=== PATIENT | male | born 1980 | race Caucasian/White ===

== ENCOUNTER 2024-04-16 09:07 | Inpatient (IN) | payer OTHER ==
[2024-04-16 09:46] VITALS: BMI 21.2
[2024-04-16] MEDS ORDERED: ACETAMINOPHEN 325 MG TABLET (FP) PO PRN (10:03)
[2024-04-16] MEDS ORDERED: MAGNESIUM HYDROX 2400MG/30ML ORAL SUSPENSION 30 ML CUP PO PRN (10:03)
[2024-04-16] MEDS ORDERED: ONDANSETRON *ODT* 4 MG TABLET SL PRN (10:03)
[2024-04-16] MEDS ORDERED: IBUPROFEN 400 MG TABLET (FP) PO PRN (10:03)
[2024-04-16] MEDS ORDERED: POLYETHYLENE GLYCOL (HEALTHYLAX) 3350 17 GM PACKET PO PRN (10:03)
[2024-04-16] MEDS ORDERED: DICYCLOMINE HCL 10 MG CAPSULE PO PRN (10:03)
[2024-04-16] MEDS ORDERED: BISMUTH SUBSALICYLATE 262 MG/15 ML BTL PO PRN (10:03)
[2024-04-16] MEDS ORDERED: NALOXONE HCL (KLOXXADO) 8 MG SPRAY NS PRN (10:03)
[2024-04-16] MEDS ORDERED: LOPERAMIDE HCL 2 MG CAPSULE PO PRN (10:03)
[2024-04-16] MEDS ORDERED: NALOXONE HCL 0.4 MG/ML VIAL IM PRN (10:03)
[2024-04-16] MEDS ORDERED: guaiFENesin 600 MG TABLET.ER (FP) PO PRN (10:03)
[2024-04-16] MEDS ORDERED: BENZOCAINE/MENTHOL (CHLORASEPTIC ) LOZENGE MM PRN (10:03)
[2024-04-16] MEDS ORDERED: BENZONATATE 200 MG CAPSULE PO PRN (10:03)
[2024-04-16] MEDS ORDERED: NITROGLYCERIN SUBLINGUAL 1/150 0.4 MG TAB SL PRN (10:32)
[2024-04-16] MEDS ORDERED: NICOTINE 21 MG/24 HOURS TOPICAL PATCH ONE (10:52)
[2024-04-16] MEDS ORDERED: methaDONE HCL 10 MG TABLET (FOR DETOX USE ONLY) ONE (10:53)
[2024-04-16] MEDS ORDERED: BUPRENORPHINE/NALOXONE 0.5 MG/0.125 MG FILM ONE (10:54)
[2024-04-16] MEDS: NICOTINE 21 MG/24 HOURS TOPICAL PATCH TD SCH (11:04)
[2024-04-16] MEDS: BUPRENORPHINE/NALOXONE 0.5 MG/0.125 MG FILM SL ONE ×2 (11:05→22:28)
[2024-04-16] MEDS: methaDONE HCL 10 MG TABLET (FOR DETOX USE ONLY) PO ONE (11:05)
[2024-04-16] MEDS ORDERED: amLODIPine BESYLATE 5 MG TABLET (FP) ONE (11:26)
[2024-04-16] MEDS: ISOSORBIDE MONONITRATE 30 MG TAB.SR.24H (FP) PO SCH (11:30)
[2024-04-16] MEDS: amLODIPine BESYLATE 2.5 MG TABLET (FP) PO SCH (11:30)
[2024-04-16] MEDS: PANTOPRAZOLE 40 MG TABLET PO SCH (12:00)
[2024-04-16] MEDS: cloNIDine HCL 0.1 MG TABLET PO SCH (13:37)
[2024-04-16 14:34] LABS: HEMATOCRIT 42.6 % (35.4-49); MCH 28.8 pg (25.7-33.7); MCHC 32.9 g/dl (32.0-35.9); MEAN CELL VOLUME 87.7 fl (80-96); MEAN PLT VOLUME 9.2 fl (7.5-11.1); PLATELET COUNT 244 10^3/uL (134-434); RBC 4.86 M/mm3 (4.00-5.60); RDW 13.7 % (11.9-15.9); WHITE BLOOD COUNT 9.6 K/mm3 (4.0-10.0)
[2024-04-16 14:48] LABS: CHLORIDE 109 mmol/L (98-107); POTASSIUM 4.1 mmol/L (3.5-5.1); SODIUM 141 mmol/L (136-145)
[2024-04-16 14:53] LABS: GLUCOSE,RANDOM 121 mg/dL (74-106)
[2024-04-16 14:55] LABS: ALBUMIN 3.4 g/dl (3.4-5.0); ANION GAP 5 mmol/L (4-13); CALCIUM 8.8 mg/dL (8.5-10.1); CO2 27 mmol/L (21-32); LDL CHOLESTEROL (ONLY SJRH) 106 mg/dL (5-100); SGOT/AST 19 U/L (15-37); TOT PROT 6.6 g/dl (6.4-8.2)
[2024-04-16 14:57] LABS: ALK PHOS 86 U/L (45-117); BILIRUBIN,TOTAL 0.3 mg/dL (0.2-1); CHOLESTEROL 155 mg/dL (50-200); CREATININE 0.9 mg/dL (0.55-1.3); HDL CHOLESTEROL 40 mg/dL (40-60); SGPT/ALT 42 U/L (13-61)
[2024-04-16 15:43] LABS: HIV INTERPRETATION NEGATIVE (NEGATIVE)
[2024-04-16] MEDS: ATORVASTATIN CA 80 MG TABLET (FP) PO SCH (22:28)
[2024-04-16] MEDS: THIAMINE 100 MG TABLET PO SCH (22:28)
[2024-04-16] MEDS: MELATONIN 5 MG TABLETS PO SCH (22:29)
[2024-04-17] MEDS: MAG HYDROX/AL HYDROX/SIMETH 30 ML UNIT-DOSE CUP PO PRN (01:27)
[2024-04-17] MEDS: PRENATAL VITAMINS W/ FOLIC ACID TABLET (FP) PO SCH (09:04)
[2024-04-17] MEDS: ASPIRIN COATED 81 MG TABLET.EC PO SCH (09:07)
[2024-04-17] MEDS: BUPRENORPHINE/NALOXONE 0.5 MG/0.125 MG FILM SL SCH (09:10)
[2024-04-17] MEDS ORDERED: PATIENT'S OWN MEDICATION (NON-FORMULARY) (Esomeprazole Magnesium [Nexium 24hr] 20 MG Capsu PO SCH (10:00)
[2024-04-17] MEDS: ISOSORBIDE MONONITRATE 30 MG TAB.SR.24H (FP) PO SCH (10:50)
[2024-04-18] MEDS: methaDONE HCL 10 MG TABLET (FOR DETOX USE ONLY) PO ONE (09:18)
[2024-04-18] MEDS: BUPRENORPHINE/NALOXONE 2 MG/0.5 MG FILM PACKET SL SCH (09:18)
[2024-04-18] MEDS: METHOCARBAMOL 500 MG TABLET PO PRN (19:16)
[2024-04-18] MEDS: hydrOXYzine PAMOATE 25 MG CAPSULE (FP) PO PRN (19:16)
[2024-04-19] MEDS: BUPRENORPHINE/NALOXONE 4 MG/1 MG FILM PACKET SL SCH (09:54)
[2024-04-20] MEDS: BACITRACIN 0.9 GM PACKET TP SCH (09:30)
[2024-04-20] MEDS: methaDONE HCL 10 MG TABLET (FOR DETOX USE ONLY) PO ONE (09:31)
[2024-04-20] MEDS: IBUPROFEN 600 MG TABLET (FP) PO PRN (09:32)
[2024-04-20] MEDS: BUPRENORPHINE/NALOXONE 8 MG/2 MG FILM PACKET SL SCH (09:36)
[2024-04-20] MEDS: CEPHALEXIN MONOHYDRATE 500 MG CAPSULE (UD) PO SCH (13:37)
[2024-04-20] MEDS: SULFAMETHOXAZOLE/TRIMETHOPRIM 800MG/160MG D.S. TABLET PO SCH (22:11)
[2024-04-20] MEDS: CLOTRIMAZOLE 1% CREAM TP SCH (22:55)
[2024-04-21 07:00] VITALS: RESP 16
[2024-04-21 09:35] VITALS: BP 150/80; PULSE 91; TEMP 99.8
[2024-04-21] MEDS: BUPRENORPHINE/NALOXONE 8 MG/2 MG FILM PACKET SL SCH (10:00)
== END 2024-04-21 10:15 | disposition home or self-care (01) | DRG 773 ==
LOC: YASAS 09:07 → Y6N 11:46
PROVIDERS: ADMIT Allergy & Immunology; ATTEND Surgery
PROC: HZ2ZZZZ Detoxification Services for Substance Abuse Treatment (ICD-10-PCS; principal; 2024-04-16)
DX: F11.23 Opioid dependence with withdrawal (principal); F10.20 Alcohol dependence, uncomplicated; F17.210 Nicotine dependence, cigarettes, uncomplicated; I25.10 Atherosclerotic heart disease of native coronary artery without angina pectoris; I10 Essential (primary) hypertension; E78.5 Hyperlipidemia, unspecified; K21.9 Gastro-esophageal reflux disease without esophagitis; L03.116 Cellulitis of left lower limb; B18.2 Chronic viral hepatitis C; Z88.0 Allergy status to penicillin
CPT/HCPCS: 36415; 80053; 80061; 80305; 80307; 83036; 85027; 86780; 87389; 87522; 93005; 93010